=== PATIENT | male | born 2000 | race Caucasian/White ===

== ENCOUNTER 2023-12-28 15:17 | Emergency (ER) | payer OTHER ==
[~2023-12-28] VITALS: Ht 182.9 cm; Wt 106.4 kg
[2023-12-28 16:57] VITALS: BP 136/101
== END 2023-12-28 16:59 | disposition home or self-care (01) ==
LOC: ED 15:17
DX: S00.12XA Contusion of left eyelid and periocular area, initial encounter (principal); Y04.2XXA Assault by strike against or bumped into by another person, initial encounter; Y92.59 Other trade areas as the place of occurrence of the external cause
CPT/HCPCS: 70486; 73030; 99284-25

== ENCOUNTER 2024-01-03 10:19 | Emergency (ER) | payer OTHER, MEDICAID ==
[~2024-01-03] VITALS: Ht 182.9 cm; Wt 109.1 kg
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
[2024-01-03] MEDS ORDERED: ONDANSETRON 4 MG TAB ODT SL ONE (12:45)
[2024-01-03] MEDS ORDERED: ONDANSETRON ODT4 MG PO (13:09)
[2024-01-03 13:24] VITALS: BP 146/82
== END 2024-01-03 13:25 | disposition home or self-care (01) ==
LOC: ED 10:19
DX: S00.12XA Contusion of left eyelid and periocular area, initial encounter (principal); Y09 Assault by unspecified means
CPT/HCPCS: 70450; 99284-25; A9270